=== PATIENT | female | born 1950 | race American Indian/Alaskan Native ===

== ENCOUNTER 2016-12-15 02:37 | Emergency (ER) | payer MEDICARE, MEDICAID ==
[2016-12-15 02:36] VITALS: BP 56/41
--- NOTE | 2016-12-15 03:09 | EDM.PDOC ---
ED HPI GENERAL MEDICAL PROBLEM - General Chief Complaint: General Stated Complaint: IN BY AMBULANCE Time Seen by Provider: 12/15/16 03:06 Source of Information: Reports: Patient, EMS History Limitations: Reports: No Limitations - History of Present Illness INITIAL COMMENTS - FREE TEXT/NARRATIVE: EMS state was called for pt arrest. was told by pt's son who said he had to do CPR on pt ~ 30 compression before she came back. EMS arrived and Pt was alert in no distress but not sure what occurred. c/o LBP chronic. Treatments ORTHOTIC FITTER: Reports: CPR, IV/IO Left Ankle Pain Score (Numeric/FACES): 10 - Related Data Allergies Allergy/AdvReac Type Severity Reaction Status Date / Time latex Allergy Rash Verified 12/15/16 02:36 acetaminophen AdvReac Abdominal Verified 12/15/16 02:36 [From Tylenol-Codeine] Pain codeine AdvReac Abdominal Verified 12/15/16 02:36 [From Tylenol-Codeine] Pain Past Medical History Neurological History: Reports: Parkinson's Endocrine/Metabolic History: Reports: Diabetes, Type II Social & Family History - Tobacco Use Smoking Status *Q: Never Smoker Second Hand Smoke Exposure: No - Recreational Drug Use Recreational Drug Use: No ED ROS GENERAL - Review of Systems Review Of Systems: ROS reveals no pertinent complaints other than HPI. ED EXAM, GENERAL - Physical Exam Exam: See Below Exam Limited By: No Limitations General Appearance: Alert, WD/WN, Mild Distress, Other (RESTLESS C/O LEG & LBP) Ears: Hearing Grossly Normal Throat/Mouth: Normal Voice, No Airway Compromise Head: Atraumatic Neck: Non-Tender, Full Range of Motion Respiratory/Chest: No Respiratory Distress, No Accessory Muscle Use, Chest Non- Tender, Rhonchi, Other (basilar) Cardiovascular: Regular Rate, Rhythm GI/Abdominal: Soft, Non-Tender Neurological: Alert, Normal Cognition, No Motor/Sensory Deficits Psychiatric: Normal Affect, Normal Mood Skin Exam: Warm, Dry, Normal Color Lymphatic: No Adenopathy Course - Vital Signs Last Recorded V/S: Last Vital Signs Temp 36.1 C 12/15/16 02:29 Pulse 89 12/15/16 02:29 Resp 16 12/15/16 02:29 BP 56/41 L 12/15/16 02:29 Pulse Ox 100 12/15/16 02:29 - Orders/Labs/Meds Orders: Active Orders 24 hr Category Date Time Status EKG 12 Lead [EKG Documentation Completion] [RC] STAT Care 12/15/16 03:03 Active Chest 1V Frontal [CR] Urgent Exams 12/15/16 03:59 Ordered Labs: Laboratory Tests 12/15/16 12/15/16 Range/Units 03:14 03:14 WBC 7.1 (5.0-10.0) 10^3/uL RBC 3.39 L (4.2-5.4) 10^6/uL Hgb 9.1 L (12.0-16.0) g/dL Hct 27.4 L (37.0-47.0) % MCV 80.8 (80-100) fL MCH 26.8 L (27.0-34.0) pg MCHC 33.2 (33.0-35.0) g/dL Plt Count 284 (150-450) 10^3/uL Neut % (Auto) 83.6 H (42.2-75.2) % Lymph % (Auto) 5.8 L (20.5-50.1) % [place] % (Auto) 9.7 H (2-8) % Eos % (Auto) 0.8 L (1.0-3.0) % Baso % (Auto) 0.1 (0.0-1.0) % Sodium 137 (135-145) mmol/L Potassium 5.2 H (3.6-5.0) mmol/L Chloride 110 (101-111) mmol/L Carbon Dioxide 10.0 L (21.0-31.0) mmol/L Anion Gap 22.2 BUN 138 H (7-18) mg/dL Creatinine 2.8 H (0.6-1.3) mg/dL Est Cr Clr Drug Dosing TNP Estimated GFR (MDRD) 17 BUN/Creatinine Ratio 49.28 Glucose 180 H (74-105) mg/dL Calcium 7.7 L (8.4-10.2) mg/dl Total Bilirubin 1.0 (0.2-1.0) mg/dL AST 9 L (10-42) IU/L ALT < 5 L (10-60) IU/L Alkaline Phosphatase 71 (42-121) IU/L Troponin I 0.18 H* (0.00-0.02) ng/ml B-Natriuretic Peptide 42 (0-100) pg/ml Total Protein 5.8 L (6.7-8.2) g/dl Albumin 2.6 L (3.2-5.5) g/dl Globulin 3.2 Albumin/Globulin Ratio 0.81 Meds: Medications Discontinued Medications Generic Name Dose Route Start Last Admin Trade Name Chantell PRN Reason Stop Dose Admin Sodium Chloride 1,000 mls @ 999 mls/hr 12/15/16 03:13 12/15/16 02:45 Normal Saline IV 12/15/16 04:13 999 mls/hr .BOLUS ONE Administration Ketorolac Tromethamine 15 mg 12/15/16 03:50 12/15/16 03:55 Toradol IVPUSH 12/15/16 03:51 15 mg ONETIME ONE Administration - Re-Assessments/Exams Free Text/Narrative Re-Assessment/Exam: 12/15/16 03:57 results discussed with family & pt. 12/15/16 04:[address] Padron @ who kindly accepted Pt. Departure - Departure Time of Disposition: 04:14 Disposition: DC/Tfer to Acute Hospital 02 Condition: Fair Clinical Impression: Myocardial ischemia, Elevated troponin - Discharge Information Forms: Interfacility Transfer EMTALA - My Orders Last 24 Hours: My Active Orders 12/15/16 03:03 EKG 12 Lead [EKG Documentation Completion] [RC] STAT 12/15/16 03:59 Chest 1V Frontal [CR] Urgent - Assessment/Plan Last 24 Hours: My Active Orders 12/15/16 03:03 EKG 12 Lead [EKG Documentation Completion] [RC] STAT 12/15/16 03:59 Chest 1V Frontal [CR] Urgent
[2016-12-15] MEDS ORDERED: Sodium Chloride 0.9% 1,000 ML IV ONE (03:13)
[2016-12-15 03:46] LABS: CHLORIDE,CL 110 mmol/L (101-111); SODIUM,NA 137 mmol/L (135-145)
[2016-12-15] MEDS ORDERED: Ketorolac 30 MG/ML SDV IVPUSH ONE (03:50)
--- NOTE | 2016-12-18 09:57 | EKG ---
12/15/2016 - MICHELL CARPENTER - EKG is sinus rhythm with a rate of 95. Normal MS interval. Normal axis. There is poor R-wave progression. EKG otherwise within normal limits. There are no signs of acute myocardial injury. [facility] /[id number]
== END 2016-12-15 04:54 ==
LOC: DL.ED 02:37
DX: I25.9 Chronic ischemic heart disease, unspecified (principal); R79.89 Other specified abnormal findings of blood chemistry; E11.9 Type 2 diabetes mellitus without complications; Z88.5 Allergy status to narcotic agent; Z88.6 Allergy status to analgesic agent; Z91.040 Latex allergy status
CPT/HCPCS: 36415; 71010; 80053; 83880; 84484; 85025; 93005; 93010; 96361; 96374; 99285; J1885; J7030; 99283

== ENCOUNTER 2017-01-18 08:15 | Emergency (ER) | payer MEDICARE, MEDICAID ==
[2017-01-18] MEDS ORDERED: Sodium Chloride 0.9% 1,000 ML IV SCH (08:30)
--- NOTE | 2017-01-18 08:32 | EDM.PDOC ---
ED HPI GENERAL MEDICAL PROBLEM - General Chief Complaint: Abdominal Pain Stated Complaint: AMBULANCE / ABD PAIN Time Seen by Provider: 01/18/17 08:27 Source of Information: Reports: EMS Notes Reviewed, Intermediate Records History Limitations: Reports: Altered Mental Status - History of Present Illness INITIAL COMMENTS - FREE TEXT/NARRATIVE: 66 yo [place] Female lives at [facility] sent by ambulance for abdomen distension and loose stools. Onset Date: 01/15/17 Onset Time: 12:00 Duration: Day(s):, Getting Worse Location: Reports: Abdomen, Generalized Quality: Reports: Ache Severity: Moderate Improves with: Reports: None Worsens with: Reports: None Context: Reports: Other (Pt. requires Johnnie Lift) Associated Symptoms: Reports: Weakness - Related Data Allergies Allergy/AdvReac Type Severity Reaction Status Date / Time latex Allergy Rash Verified 12/15/16 02:36 acetaminophen AdvReac Abdominal Verified 12/15/16 02:36 [From Tylenol-Codeine] Pain codeine AdvReac Abdominal Verified 12/15/16 02:36 [From Tylenol-Codeine] Pain Home Meds: Home Meds Carbidopa/Levodopa [Carbidopa-Levodopa 25-100 Tab] 1 tab PO TID 01/18/17 [ History] Furosemide [Lasix] 1 tab PO DAILY 01/18/17 [History] Hydrocodone/Acetaminophen [Hydrocodon-Acetaminophn 10-325] 1 tab PO Q8HR [History] Levothyroxine 12.5 mcg PO DAILY 01/18/17 [History] Midodrine 2.5 mg PO BID 01/18/17 [History] Sertraline [Zoloft] 1 tab PO BEDTIME 01/18/17 [History] glipiZIDE [Glucotrol] 1 tab PO BID 01/18/17 [History] Past Medical History Neurological History: Reports: Parkinson's Endocrine/Metabolic History: Reports: Diabetes, Type II Social & Family History - Tobacco Use Smoking Status *Q: Never Smoker Second Hand Smoke Exposure: No - Recreational Drug Use Recreational Drug Use: No ED ROS GENERAL - Review of Systems Review Of Systems: See Below Constitutional: Reports: Weakness, Decreased Appetite HEENT: Reports: No Symptoms Respiratory: Reports: No Symptoms Cardiovascular: Reports: No Symptoms Endocrine: Reports: High Glucose GI/Abdominal: Reports: Abdominal Pain, Constipation, Distension : Reports: No Symptoms Musculoskeletal: Reports: No Symptoms Skin: Reports: No Symptoms Neurological: Reports: Difficulty Walking, Weakness Psychiatric: Reports: No Symptoms Hematologic/Lymphatic: Reports: No Symptoms Immunologic: Reports: No Symptoms ED EXAM, GI/ABD - Physical Exam Exam: See Below Exam Limited By: Altered Mental Status General Appearance: No Apparent Distress, Lethargic Eyes: Bilateral: EOMI Ears: Normal External Exam Nose: Normal Inspection Throat/Mouth: Normal Inspection, Normal Lips Head: Atraumatic, Normocephalic Neck: Normal Inspection, Supple Respiratory/Chest: No Respiratory Distress, Lungs Clear, Normal Breath Sounds Cardiovascular: Normal Peripheral Pulses, Regular Rate, Rhythm GI/Abdominal Exam: Soft, Distended, Tender, Abnormal Bowel Sounds (none) Back Exam: Normal Inspection Extremities: Normal Inspection, Normal Range of Motion, Non-Tender Neurological: Alert Psychiatric: Normal Affect Skin Exam: Warm, Intact Lymphatic: No Adenopathy Course - Vital Signs Last Recorded V/S: Last Vital Signs Temp 35.7 C 01/18/17 10:04 Pulse 97 01/18/17 10:04 Resp 24 H 01/18/17 10:04 BP 73/33 L 01/18/17 10:04 Pulse Ox 93 L 01/18/17 10:04 - Orders/Labs/Meds Orders: Active Orders 24 hr Category Date Time Status EKG 12 Lead [EKG Documentation Completion] [RC] STAT Care 01/18/17 09:03 Active Urinary Catheter Assessment [RC] ASDIRECTED Care 01/18/17 08:30 Active Urinary Catheter Insertion [Insert Urinary Catheter] [ Care 01/18/17 08:30 Ordered OM.PC] Q24H Chest 1V Frontal [CR] Urgent Exams 01/18/17 10:03 Ordered Chest Abdomen Pelvis wo Cont [CT] Urgent Exams 01/18/17 08:29 Ordered CULTURE BLOOD [BC] Stat Lab 01/18/17 08:50 Received CULTURE BLOOD [BC] Stat Lab 01/18/17 09:45 Received CULTURE URINE [RM] Stat Lab 01/18/17 08:50 Received Dextrose 5%-0.9% NaCl [Dextrose 5%-Normal Saline] 1,000 Med 01/18/17 10:30 Ordered ml IV ASDIRECTED Sodium Chloride 0.9% [Normal Saline] 1,000 ml Med 01/18/17 08:30 Active IV ASDIRECTED Medication Orders Sodium Chloride (Normal Saline) 1,000 mls @ 125 mls/hr IV ASDIRECTED ARIA Last Admin: 01/18/17 10:16 Dose: 125 mls/hr Dextrose/Sodium Chloride (Dextrose 5%-Normal Saline) 1,000 mls @ 999 mls/hr IV ASDIRECTED ARIA Last Admin: 01/18/17 10:30 Dose: 999 mls/hr Labs: Laboratory Tests 01/18/17 01/18/17 01/18/17 Range/Units 08:50 08:50 08:50 WBC 10.6 H (5.0-10.0) 10^3/uL RBC 4.33 (4.2-5.4) 10^6/uL Hgb 11.3 L D (12.0-16.0) g/dL Hct 38.0 (37.0-47.0) % MCV 87.8 (80-100) fL MCH 26.1 L (27.0-34.0) pg MCHC 29.7 L (33.0-35.0) g/dL Plt Count 141 L (150-450) 10^3/uL Neut % (Auto) 85.1 H (42.2-75.2) % Lymph % (Auto) 8.8 L (20.5-50.1) % [place] % (Auto) 5.9 (2-8) % Eos % (Auto) 0.1 L (1.0-3.0) % Baso % (Auto) 0.1 (0.0-1.0) % Add Manual Diff Yes Neutrophils % (Manual) 39 L (42-75) % Band Neutrophils % 33 % Lymphocytes % (Manual) 15 L (20-50) % Monocytes % (Manual) 5 (2-8) % Metamyelocytes % 7 Myelocytes % 1 Atypical Lymphocytes Few Vacuolated Monocytes 1+ slight Toxic Granulation 1+ slight Platelet Estimate Decreased Giant Platelets Few Hypochromasia 1+ slight Sodium 136 (135-145) mmol/L Potassium 7.2 H* D (3.6-5.0) mmol/L Chloride 96 L (101-111) mmol/L Carbon Dioxide 19.0 L D (21.0-31.0) mmol/L Anion Gap 28.2 BUN 46 H (7-18) mg/dL Creatinine 1.8 H (0.6-1.3) mg/dL Est Cr Clr Drug Dosing TNP Estimated GFR (MDRD) 28 BUN/Creatinine Ratio 25.55 Glucose 352 H (74-105) mg/dL Lactic Acid (0.5-2.2) mmol/L Calcium 10.7 H D (8.4-10.2) mg/dl Total Bilirubin 1.2 H (0.2-1.0) mg/dL AST 56 H (10-42) IU/L ALT 8 L (10-60) IU/L Alkaline Phosphatase 106 (42-121) IU/L Total Protein 6.2 L (6.7-8.2) g/dl Albumin 2.9 L (3.2-5.5) g/dl Globulin 3.3 Albumin/Globulin Ratio 0.88 Amylase 46 (28-100) U/L Urine Color Brown (YELLOW) Urine Appearance Cloudy (CLEAR) Urine pH 5.5 (5.0-9.0) Ur Specific [place] 1.015 (1.005-1.030) Urine Protein >=300 H (NEGATIVE) Urine Glucose (UA) 100 H (NEGATIVE) Urine Ketones 15 H (NEGATIVE) Urine Occult Blood Large H (NEGATIVE) Urine Nitrite Negative (NEGATIVE) Urine Bilirubin Large H (NEGATIVE) Urine Urobilinogen 2.0 H (0.2-1.0) mg/dL Ur Leukocyte Esterase Large H (NEGATIVE) Urine RBC Semi-packed H /HPF Urine WBC Packed H (0-5/HPF) /HPF Ur Epithelial Cells Few /HPF Urine Bacteria Many H (0-FEW/HPF) /HPF Urine Other See note 01/18/17 Range/Units 08:50 WBC (5.0-10.0) 10^3/uL RBC (4.2-5.4) 10^6/uL Hgb (12.0-16.0) g/dL Hct (37.0-47.0) % MCV (80-100) fL MCH (27.0-34.0) pg MCHC (33.0-35.0) g/dL Plt Count (150-450) 10^3/uL Neut % (Auto) (42.2-75.2) % Lymph % (Auto) (20.5-50.1) % [place] % (Auto) (2-8) % Eos % (Auto) (1.0-3.0) % Baso % (Auto) (0.0-1.0) % Add Manual Diff Neutrophils % (Manual) (42-75) % Band Neutrophils % % Lymphocytes % (Manual) (20-50) % Monocytes % (Manual) (2-8) % Metamyelocytes % Myelocytes % Atypical Lymphocytes Vacuolated Monocytes Toxic Granulation Platelet Estimate Giant Platelets Hypochromasia Sodium (135-145) mmol/L Potassium (3.6-5.0) mmol/L Chloride (101-111) mmol/L Carbon Dioxide (21.0-31.0) mmol/L Anion Gap BUN (7-18) mg/dL Creatinine (0.6-1.3) mg/dL Est Cr Clr Drug Dosing Estimated GFR (MDRD) BUN/Creatinine Ratio Glucose (74-105) mg/dL Lactic Acid 11.0 H (0.5-2.2) mmol/L Calcium (8.4-10.2) mg/dl Total Bilirubin (0.2-1.0) mg/dL AST (10-42) IU/L ALT (10-60) IU/L Alkaline Phosphatase (42-121) IU/L Total Protein (6.7-8.2) g/dl Albumin (3.2-5.5) g/dl Globulin Albumin/Globulin Ratio Amylase (28-100) U/L Urine Color (YELLOW) Urine Appearance (CLEAR) Urine pH (5.0-9.0) Ur Specific [place] (1.005-1.030) Urine Protein (NEGATIVE) Urine Glucose (UA) (NEGATIVE) Urine Ketones (NEGATIVE) Urine Occult Blood (NEGATIVE) Urine Nitrite (NEGATIVE) Urine Bilirubin (NEGATIVE) Urine Urobilinogen (0.2-1.0) mg/dL Ur Leukocyte Esterase (NEGATIVE) Urine RBC /HPF Urine WBC (0-5/HPF) /HPF Ur Epithelial Cells /HPF Urine Bacteria (0-FEW/HPF) /HPF Urine Other Meds: Medications Generic Name Dose Route Start Last Admin Trade Name Freq PRN Reason Stop Dose Admin Sodium Chloride 1,000 mls @ 125 mls/hr 01/18/17 08:30 01/18/17 10:16 Normal Saline IV 125 mls/hr ASDIRECTED ARIA Administration Dextrose/Sodium Chloride 1,000 mls @ 999 mls/hr 01/18/17 10:30 01/18/17 10:30 Dextrose 5%-Normal Saline IV 999 mls/hr ASDIRECTED ARIA Administration Discontinued Medications Generic Name Dose Route Start Last Admin Trade Name Chantell PRN Reason Stop Dose Admin Vancomycin HCl 0.837 gm/ 250 mls @ 167 mls/hr 01/18/17 09:25 01/18/17 10:11 Sodium Chloride IV 01/18/17 10:54 167 mls/hr ONETIME ONE Administration Ciprofloxacin/Dextrose 400 mg/ 200 mls @ 200 mls/hr 01/18/17 09:44 Premix IV 01/18/17 10:43 ONETIME ONE Dopamine HCl/Dextrose 400 mg in 250 mls @ 0 mls/hr 01/18/17 10:30 Dopamine In D5w 400 Mg/250 Ml IV TITRATE ARIA Protocol 2 MCG/KG/MIN Insulin Human Regular 40 unit 01/18/17 10:24 Humulin R IV 01/18/17 10:25 ONETIME ONE Protocol Sodium Polystyrene Sulfonate 45 gm 01/18/17 09:22 01/18/17 09:38 Kayexalate RECTAL 01/18/17 09:23 45 gm NOW ONE Administration Departure - Departure Time of Disposition: 10:54 Disposition: DC/Tfer to Acute Hospital 02 Condition: Poor Clinical Impression: Hyperkalemia, Large bowel obstruction Hypotension Qualifiers: Hypotension type: unspecified hypotension type Qualified Code(s): I95.9 - Hypotension, unspecified UTI (urinary tract infection) Qualifiers: Urinary tract infection type: acute cystitis - Discharge Information Forms: ED Department Discharge, Interfacility Transfer EMTALA - My Orders Last 24 Hours: My Active Orders 01/18/17 08:29 Chest Abdomen Pelvis wo Cont [CT] Urgent 01/18/17 08:30 Urinary Catheter Assessment [RC] ASDIRECTED Urinary Catheter Insertion [Insert Urinary Catheter] [OM.PC] Q24H Sodium Chloride 0.9% [Normal Saline] 1,000 ml IV ASDIRECTED 01/18/17 08:50 CULTURE BLOOD [BC] Stat CULTURE URINE [RM] Stat 01/18/17 09:03 EKG 12 Lead [EKG Documentation Completion] [RC] STAT 01/18/17 09:45 CULTURE BLOOD [BC] Stat 01/18/17 10:03 Chest 1V Frontal [CR] Urgent 01/18/17 10:30 Dextrose 5%-0.9% NaCl [Dextrose 5%-Normal Saline] 1,000 ml IV ASDIRECTED - Assessment/Plan Last 24 Hours: My Active Orders 01/18/17 08:29 Chest Abdomen Pelvis wo Cont [CT] Urgent 01/18/17 08:30 Urinary Catheter Assessment [RC] ASDIRECTED Urinary Catheter Insertion [Insert Urinary Catheter] [OM.PC] Q24H Sodium Chloride 0.9% [Normal Saline] 1,000 ml IV ASDIRECTED 01/18/17 08:50 CULTURE BLOOD [BC] Stat CULTURE URINE [RM] Stat 01/18/17 09:03 EKG 12 Lead [EKG Documentation Completion] [RC] STAT 01/18/17 09:45 CULTURE BLOOD [BC] Stat 01/18/17 10:03 Chest 1V Frontal [CR] Urgent 01/18/17 10:30 Dextrose 5%-0.9% NaCl [Dextrose 5%-Normal Saline] 1,000 ml IV ASDIRECTED
[2017-01-18 09:18] LABS: CHLORIDE,CL 96 mmol/L (101-111); SODIUM,NA 136 mmol/L (135-145)
[2017-01-18] MEDS ORDERED: Sodium Polystyrene Sulfonate 15 GM/60 ML Susp 60 ML Bot RECTAL ONE (09:22)
[2017-01-18] MEDS ORDERED: SODIUM CHLORIDE 0.9% IV ONE (09:25)
[2017-01-18] MEDS ORDERED: VANCOMYCIN IV ONE (09:25)
[2017-01-18] MEDS ORDERED: Ciprofloxacin in D5W 400 MG in Premix Bag 1 BAG IV ONE ×2 (09:44)
[2017-01-18 10:05] VITALS: BP 73/33
[2017-01-18] MEDS ORDERED: Insulin Regular, Human 100 Units/ML 3 ML Vial IV ONE (10:24)
[2017-01-18] MEDS ORDERED: DOPamine/Dextrose 5%-Water 400 MG/250 ML BAG IV SCH (10:30)
[2017-01-18] MEDS ORDERED: Dextrose 5%-0.9% NaCl 1,000 ML IV SCH (10:30)
--- NOTE | 2017-01-21 11:34 | EKG ---
01/18/2017 - MICHELL CARPENTER - TIME: 09:04 a.m. FINDINGS: EKG shows sinus tachycardia, rate of 100 per minute, has borderline left axis deviation. [facility] /[id number]
== END 2017-01-18 12:02 ==
LOC: DL.ED 08:15
DX: K56.609 Unspecified intestinal obstruction, unspecified as to partial versus complete obstruction (principal); N39.0 Urinary tract infection, site not specified; E87.5 Hyperkalemia; I95.9 Hypotension, unspecified; E11.9 Type 2 diabetes mellitus without complications; Z91.040 Latex allergy status; Z88.6 Allergy status to analgesic agent; Z88.5 Allergy status to narcotic agent; Z79.899 Other long term (current) drug therapy
CPT/HCPCS: 36415; 51702; 71250; 74176; 80053; 81001; 82150; 82272; 82962; 83605; 85025; 87040; 87077; 87086; 87088; 87186; 93005; 93010; 96365; 96366; 96374; 99285; A9270; J1815; J3370; J7030; J7042; J7050; 99284